=== PATIENT | male | born 1970 | race Caucasian/White ===

== ENCOUNTER 2020-07-12 21:25 | Emergency (ER) | payer OTHER ==
[~2020-07-12] VITALS: Ht 180.3 cm; Wt 95.6 kg
--- NOTE | 2020-07-12 21:46 | PHYS DOC ---
Past History Past Medical History: Arthritis General Adult EDM: Chief Complaint: HIP PAIN HPI: HPI: ".. I don't know what happen.. I got this severe pain.. right here in this Rt hip... right here on the crest..... I was in shower... it was swollen and red.. I have been putting an retaining wires on my deck in [place]... May of gotten hurt putting up structure... I flew down here to be with my who is taking the commander's course at [facility]... But tonight I got this really bad pain here in this hip.... 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 Patient is a 49 year old male who presents with above hx and hip pain. Patient localizes pain on right iliac crest.. Does have a vessel there that is inflamed and a small area of redness. There is point tenderness there.. Multiple tendon and ligament insertion site. There is a area of inflamed bursa. Does appear to have had some recent blunt trauma. Distal neurovascular intact. No lower abdomen pain. Stressing of area causes pain that is reproducible. Does not appear to be infected. There is no adenopathy. . Patient can follow-up at [facility].. Patient states he has tried some ibuprofen at home. 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 Patient at this time declines any pain medications. Patient has agreed to an x-ray of pelvis to evaluate for possible local per iosteal or bony injury. Patient denies any fever or chills. No severe ill contacts. Has recent travel from [place]. No history of DVTs. No history of pulmonary embolisms with him or family members. Review of Systems: Review of Systems: Constitutional: Denies fever or chills Eyes: Denies change in visual acuity HENT: Denies nasal congestion or sore throat Respiratory: Denies cough or shortness of breath Cardiovascular: Denies chest pain or edema GI: Denies abdominal pain, nausea, vomiting, bloody stools or diarrhea : Denies dysuria Musculoskeletal: Complains of right iliac crest pain. Integument: Denies rash Neurologic: Denies headache, focal weakness or sensory changes Endocrine: Denies polyuria or polydipsia Lymphatic: Denies swollen glands Psychiatric: Denies depression or anxiety Family History: Family History: Noncontributory to presentation Current Medications: Current Meds: See nursing for home meds Allergies: Allergies: Complains of a rash with penicillins Physical Exam: PE: Constitutional: Well developed, well nourished, no acute distress, non-toxic appearance. [] HENT: Normocephalic, atraumatic, bilateral external ears normal, oropharynx moist, no oral exudates, nose normal. Full baugh. Eyes: PERRLA, EOMI, conjunctiva normal, no discharge. [] Neck: Normal range of motion, no tenderness, supple, no stridor. [] Cardiovascular:Heart rate regular rhythm, no murmur [] Lungs & Thorax: Bilateral breath sounds equal at apex on auscultation [] Abdomen: Bowel sounds normal, soft, no tenderness, no masses, no pulsatile masses. No rebound pain. Patient is distended. Skin: Warm, dry, no erythema, no rash. Area of contusion approximately 2 cm area of right iliac crest. Back:no CVA tenderness. Does have some upper trapezius tenderness and muscle spasms Extremities: No tenderness, no cyanosis, no clubbing, ROM intact, no edema. Patient has only localized pain in the iliac crest area as per above. No cording appreciated. No psoas sign or heel tap. Neurologic: Alert and oriented X 3, normal motor function, normal sensory function, no focal deficits noted. [] Psychologic: Affect anxious, judgement normal, mood normal. [] EKG: EKG: [] Radiology/Procedures: Radiology/Procedures: [][address] [address] IMAGING REPORT Signed PATIENT: EKATERINA BEJARANO ACCOUNT: [id number] : 1970 LOCATION: ER AGE: 49 SEX: M EXAM STATUS: DEP ER ORD. PHYSICIAN: KRISTINE SPEARS MD REASON: hip pain, RIGHT LATERAL UPPER PELVIS PAIN, NO KNOWN INJURY. PROCEDURE: PELVIS EXAM: PELVIS 1 VIEW. HISTORY: Hip and pelvic pain. COMPARISON: None. FINDINGS: No fractures are identified. There is moderately decreased femoral head/neck offset bilaterally. Prominent os acetabula are noted on the right greater than left. There is mild superior joint space narrowing at the right hip. The joint spaces of the left hip appear maintained. IMPRESSION: 1. 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 Suspect mild right hip osteoarthritis. Electronically signed by: Pepito Sevilla MD (07/13/2020 12:10 AM) [facility] DICTATED AND SIGNED BY: OSMAN SEVILLA MD DATE: 07/13/209 CC: KRISTINE SPEARS MD; PCP,NO ~ Heart Score: Risk Factors: Risk Factors: DM, Current or recent (<one month) smoker, HTN, HLP, family history of CAD, obesity. Risk Scores: Score 0 - 3: 2.5% MACE over next 6 weeks - Discharge Home Score 4 - 6: 20.3% MACE over next 6 weeks - Admit for Clinical Observation Score 7 - 10: 72.7% MACE over next 6 weeks - Early Invasive Strategies Course & Med Decision Making: Course & Med Decision Making Pertinent Labs and Imaging studies reviewed. (See chart for details) Recommend patient continue use ice packs as needed. Patient to take Tylenol and ibuprofen for pain. If continued localized pain or findings of infection or adenopathy must follow-up with primary care or return if any concerns. Reviewed films with patient. Patient does have findings of degenerative joint changes. There is findings of femoral acetabular impingement and osteoarthritis. No obvious fracture. Patient return if any concerns. Patient declined any pain meds. Patient declined any prescription for pain meds. Patient is amatory without problems. Impression: 1. Right iliac crest pain-suspect hip point contusion 2. Does have findings of osteoarthritis, and findings of possible femoral acetabular impingement 3. Constipation. [] Dragon Disclaimer: Dragon Disclaimer: This electronic medical record was generated, in whole or in part, using a voice recognition dictation system. Departure Departure: Disposition: 01 DC HOME SELF CARE/HOMELESS Condition: STABLE Referrals: PCP,DEVEN (PCP) [facility] Disclaimer This chart was dictated in whole or in part using Voice Recognition software in a busy, high-work load, and often noisy Emergency Department environment. It may contain unintended and wholly unrecognized errors or omissions. Dragon Disclaimer This chart was dictated in whole or in part using Voice Recognition software in a busy, high-work load, and often noisy Emergency Department environment. It may contain unintended and wholly unrecognized errors or omissions. KRISTINE SPEARS MD Jul 12, 2020 21:46
[2020-07-12 22:53] LABS: BARBITURATES NEG (NEG); BENZODIAZEPINES NEG (NEG); CANNABINOIDS NEG (NEG); COCAINE NEG (NEG); METHADONE NEG (NEG); OPIATES NEG (NEG); PHENCYCLIDINE NEG (NEG)
[2020-07-12 22:56] LABS: BACTERIA,URINE 0 /HPF (0-FEW); BILIRUBIN,URINE NEG (NEG); CLARITY,URINE CLEAR; COLOR,URINE YELLOW; GLUCOSE,URINE NEG (NEG); NITRITE,URINE NEG (NEG); UROBILINOGEN,URINE 0.2 mg/dL (0.2 mg/dL); WBC,URINE OCC /HPF (0-4)
[2020-07-12 23:01] LABS: AMPHETAMINE/METHAMPHETAMINE NEG (NEG)
[2020-07-12 23:55] VITALS: BP 112/75
--- NOTE | 2020-07-13 00:13 | RAD ---
EXAM: PELVIS 1 VIEW. HISTORY: Hip and pelvic pain. COMPARISON: None. FINDINGS: No fractures are identified. There is moderately decreased femoral head/neck offset bilaterally. Prominent os acetabula are noted on the right greater than left. There is mild superior joint space narrowing at the right hip. The joint spaces of the left hip appear maintained. IMPRESSION: 1. 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 Suspect mild right hip osteoarthritis. Electronically signed by: Pepito Sevilla MD (07/13/2020 12:10 AM) [facility]
== END 2020-07-12 23:55 | disposition home or self-care (01) ==
LOC: ER 21:25
DX: M16.11 Unilateral primary osteoarthritis, right hip (principal); K59.00 Constipation, unspecified
CPT/HCPCS: 36415; 72170; 80307; 81001; 99284